=== PATIENT | male | born 1995 | race African-American/Black ===

== ENCOUNTER 2021-11-05 23:50 | Emergency (ER) | payer SELFPAY ==
[~2021-11-05] VITALS: Ht 190.5 cm; Wt 75.3 kg
[2021-11-06 02:18] VITALS: BP 125/83
[2021-11-06] MEDS ORDERED: ONDA4TAB50 MT (03:08)
[2021-11-06] MEDS ORDERED: ONDANSETRON 4MG ODT PO ONE (03:15)
== END 2021-11-06 03:15 | disposition left against medical advice (07) ==
LOC: ER 23:50
DX: B34.9 Viral infection, unspecified (principal); Z20.822 Contact with and (suspected) exposure to COVID-19
CPT/HCPCS: 99281